=== PATIENT | female | born 1985 | race Caucasian/White ===

== ENCOUNTER 2022-10-15 05:37 | Emergency (ER) | payer MEDICAID, OTHER ==
[~2022-10-15] VITALS: Ht 154.9 cm; Wt 75.7 kg
[2022-10-15 05:40] VITALS: BP 130/83
--- NOTE | 2022-10-15 05:48 | NUR ---
PT TAKEN TO BED 11
--- NOTE | 2022-10-15 05:52 | NUR ---
Patient resting in bed, A/Ox4, chest rise and fall symmetrical, no s/s of distress.
[2022-10-15] MEDS ORDERED: NACL 0.9% 1,000 ML IV ONE (06:45)
[2022-10-15] MEDS ORDERED: diphenhydrAMINE 50 MG/ML VIAL IVP ONE (06:45)
[2022-10-15] MEDS ORDERED: METOCLOPRAMIDE 10 MG/2 ML INJ VIAL IVP ONE (06:45)
[2022-10-15] MEDS ORDERED: KETOROLAC 15 MG/ML VIAL IVP ONE (06:45)
--- NOTE | 2022-10-15 07:00 | NUR ---
Patient resting in bed, A/Ox4, chest rise and fall symmetrical, no s/s of distress.
--- NOTE | 2022-10-15 07:19 | NUR ---
Change of shift report given to AM shift nurse Keerthi RN. AM shift nurse Keerthi RN verbalized understanding of report, no further questions.
[2022-10-15 07:46] LABS: ALBUMIN 4.3 g/dL (3.4-5.0); ANION GAP 11.9 (8-16); CARBON DIOXIDE 27.4 mmol/L (21-32); CREATININE 0.8 mg/dL (0.6-1.3); POTASSIUM 4.3 mmol/L (3.5-5.1)
[2022-10-15] MEDS ORDERED: SUMA25TA PO (07:50)
[2022-10-15] MEDS ORDERED: NAPR-54 PO (07:50)
[2022-10-15 08:09] LABS: BASOPHILS # (AUTO) 0.1 K/uL (0.00-0.22); BASOPHILS % (AUTO) 0.8 % (0.0-2.0); EOSINOPHILS # (AUTO) 0.1 K/uL (0-0.4); EOSINOPHILS % (AUTO) 1.3 % (0.0-4.0); HEMATOCRIT 36.9 % (36-48); HEMOGLOBIN 11.8 g/dL (12.0-16.0); LYMPHOCYTES # (AUTO) 2.3 K/uL (2.5-16.5); LYMPHOCYTES % (AUTO) 25.7 % (20.5-51.1); MEAN CORPUSCULAR HEMOGLOBIN 28 pg (27-31); MEAN CORPUSCULAR HGB CONC 32 g/dL (33-37); MEAN CORPUSCULAR VOLUME 85.9 fL (80-94); MONOCYTES # (AUTO) 0.6 K/uL (0.8-1.0); MONOCYTES % (AUTO) 6.6 % (1.7-9.3); NEUTROPHILS # (AUTO) 5.8 K/uL (1.8-7.7); NEUTROPHILS % (AUTO) 65.6 % (42.2-75.2); PLATELET COUNT (AUTO) 279 K/uL (140-450); RED CELL DISTRIBUTION WIDTH 13.4 % (11.6-13.7); WHITE BLOOD COUNT (AUTO) 8.8 K/uL (4.8-10.8)
[2022-10-15 08:27] VITALS: BP 141/70
--- NOTE | 2022-10-18 08:15 | NUR ---
LATE ENTRY -- CONFIRMED WITH NURSE NS INFUSION COMPLETED AT 0800 10/15/22
== END 2022-10-15 08:28 | disposition home or self-care (01) ==
LOC: MED 05:37
DX: G43.909 Migraine, unspecified, not intractable, without status migrainosus (principal); Z88.2 Allergy status to sulfonamides
CPT/HCPCS: 36415; 80053; 85025; 96361; 96374; 96375; 99284; J1200; J1885; J2765; J7030

== ENCOUNTER 2022-11-19 10:21 | Emergency (ER) | payer OTHER ==
[~2022-11-19] VITALS: Ht 154.9 cm; Wt 80.7 kg
[~2022-11-19 10:21] MED LIST: NAPR-54 PO; SUMA25TA PO
[2022-11-19 10:43] VITALS: BP 115/61
[2022-11-19] MEDS ORDERED: KETOROLAC 30 MG/ML VIAL IM ONE (11:10)
--- NOTE | 2022-11-19 11:28 | NUR ---
HERE FOR LOWER BACK PAIN AND SOME ABD DISCOMFORT, FREQ URINATING SENSATION MEDICATED ORDERED
--- NOTE | 2022-11-19 12:02 | NUR ---
Female [employer] Operator accompanied female patient for Pelvic Exam.
[2022-11-19 13:27] LABS: APPEARANCE,URINE CLEAR (CLEAR); BILIRUBIN,URINE NEGATIVE (NEGATIVE); BLOOD, URINE NEGATIVE (NEGATIVE); COLOR,URINE YELLOW (YELLOW); LEUKOCYTE ESTERASE ,URINE 2+ (NEGATIVE); NITRITE, URINE NEGATIVE (NEGATIVE); PH,URINE 6.5 (5.0-9.0); UGLUCOSE NEGATIVE (NEGATIVE)
[2022-11-19 13:50] LABS: RBC,URINE 0-5 /HPF (0-5)
[2022-11-19] MEDS ORDERED: NITR100C7 PO (13:53)
[2022-11-19] MEDS ORDERED: IBUP-2213 PO (13:53)
[2022-11-19] MEDS ORDERED: PYR100 PO (13:53)
[2022-11-19] MEDS ORDERED: CLOT2CRE VG (13:53)
[2022-11-19 14:05] VITALS: BP 126/76
--- NOTE | 2022-11-19 14:06 | NUR ---
dc'd homePatient discharged with v/s stable. Written and verbal after care instructions given and explained. Patient verbalized understanding. Ambulatory with steady gait. All questions addressed prior to discharge. Advised to follow up with PMD.
[2022-11-22] MEDS ORDERED: AMOX1TAB8 PO (15:44)
== END 2022-11-19 14:05 | disposition home or self-care (01) ==
LOC: MED 10:21
DX: N39.0 Urinary tract infection, site not specified (principal); Z11.3 Encounter for screening for infections with a predominantly sexual mode of transmission; Z90.710 Acquired absence of both cervix and uterus; Z79.899 Other long term (current) drug therapy; Z79.1 Long term (current) use of non-steroidal anti-inflammatories (NSAID); Z79.2 Long term (current) use of antibiotics; Z88.2 Allergy status to sulfonamides
CPT/HCPCS: 81001; 87086; 87110; 87210; 87299; 87491; 96372; 99284; J1885

== ENCOUNTER 2023-01-23 17:19 | Emergency (ER) | payer OTHER ==
[~2023-01-23] VITALS: Ht 153.7 cm; Wt 82.1 kg
[~2023-01-23 17:19] MED LIST changes: +AMOX1TAB8 PO; +CLOT2CRE VG; +IBUP-2213 PO; +PYR100 PO
[2023-01-23 17:29] VITALS: BP 133/74
--- NOTE | 2023-01-23 17:51 | NUR ---
PT. NOT FOUND IN LOBBY. CALLED PT.S NAME OUTSIDE ER. CHECKED BATHROOMS. PT. NOT FOUND. PT. LEFT WITHOUT
[2023-01-23] MEDS ORDERED: diphenhydrAMINE 50 MG/ML VIAL IVP ONE (18:15)
[2023-01-23] MEDS ORDERED: PROCHLORPERAZINE 10 MG/2 ML VIAL IVP ONE (18:15)
[2023-01-23] MEDS ORDERED: NACL 0.9% 1,000 ML IV ONE (18:15)
--- NOTE | 2023-01-23 18:40 | NUR ---
PT. MOVED TO BED 3 FOR FURTHER CARE
--- NOTE | 2023-01-23 19:21 | NUR ---
HERE FOR EVALUATION OF KHAN, PT STS IT FEELS LIKE MY MIGRAINE, MEDS GIVEN ORDERED
[2023-01-23] MEDS ORDERED: ONDA-188 PO (19:36)
[2023-01-23] MEDS ORDERED: NAPR-54 PO (19:36)
[2023-01-23 19:58] VITALS: BP 133/74
--- NOTE | 2023-01-23 19:58 | NUR ---
Patient discharged with v/s stable. Written and verbal after care instructions given and explained. Patient alert, oriented and verbalized understanding of instructions. Ambulatory with steady gait. All questions addressed prior to discharge. ID band removed. Patient advised to follow up with PMD. Rx of NAPROXEN, AND ONDANSETRON given. Patient educated on indication of medication including possible reaction and side effects. Opportunity to ask questions provided and answered. DX: GENERAL HEADACHE WITHOUT CAUSE, MIGRAINE HEADACHE
== END 2023-01-23 19:58 | disposition home or self-care (01) ==
LOC: MED 17:19
DX: R51.9 Headache, unspecified (principal); R03.0 Elevated blood-pressure reading, without diagnosis of hypertension; R11.0 Nausea; H53.149 Visual discomfort, unspecified; J45.909 Unspecified asthma, uncomplicated; Z88.2 Allergy status to sulfonamides; Z79.899 Other long term (current) drug therapy
CPT/HCPCS: 96361; 96374; 96375; 99284; J0780; J1200; J7030

== ENCOUNTER 2023-04-27 10:07 | Emergency (ER) | payer OTHER ==
[~2023-04-27] VITALS: Ht 137.2 cm; Wt 79.4 kg
[~2023-04-27 10:07] MED LIST changes: +ONDA-188 PO
[2023-04-27 10:25] VITALS: BP 131/71; PULSE 72; RESP 20; TEMP 98.3; O2SAT 96
[2023-04-27] MEDS ORDERED: NACL 0.9% 1,000 ML IV SCH (11:25)
[2023-04-27 11:45] LABS: BASOPHILS % (AUTO) 0.5 % (0.0-2.0); EOSINOPHILS # (AUTO) 0.1 K/uL (0-0.4); EOSINOPHILS % (AUTO) 1.6 % (0.0-4.0); HEMATOCRIT 39.9 % (36-48); HEMOGLOBIN 12.9 g/dL (12.0-16.0); LYMPHOCYTES # (AUTO) 2.2 K/uL (2.5-16.5); LYMPHOCYTES % (AUTO) 24.3 % (20.5-51.1); MEAN CORPUSCULAR HEMOGLOBIN 27 pg (27-31); MEAN CORPUSCULAR HGB CONC 32 g/dL (33-37); MEAN CORPUSCULAR VOLUME 83.9 fL (80-94); MONOCYTES # (AUTO) 0.7 K/uL (0.8-1.0); MONOCYTES % (AUTO) 7.7 % (1.7-9.3); NEUTROPHILS % (AUTO) 65.9 % (42.2-75.2); PLATELET COUNT (AUTO) 292 K/uL (140-450); RED BLOOD CELL COUNT(AUTO) 4.76 MIL/uL (4.20-5.40); RED CELL DISTRIBUTION WIDTH 13.8 % (11.6-13.7); WHITE BLOOD COUNT (AUTO) 9.1 K/uL (4.8-10.8)
[2023-04-27 12:08] LABS: ALBUMIN 3.6 g/dL (3.4-5.0); CALCIUM 8.6 mg/dL (8.5-10.1); CARBON DIOXIDE 28.2 mmol/L (21-32); CREATININE 0.8 mg/dL (0.6-1.3); POTASSIUM 4.2 mmol/L (3.5-5.1); TOTAL BILIRUBIN 0.3 mg/dL (0.0-1.0); TOTAL PROTEIN, SERUM 7.6 g/dL (6.4-8.2)
[2023-04-27 12:39] LABS: APPEARANCE,URINE CLEAR (CLEAR); BILIRUBIN,URINE NEGATIVE (NEGATIVE); BLOOD, URINE NEGATIVE (NEGATIVE); COLOR,URINE YELLOW (YELLOW); LEUKOCYTE ESTERASE ,URINE NEGATIVE (NEGATIVE); NITRITE, URINE NEGATIVE (NEGATIVE); PROTEIN,URINE NEGATIVE (NEGATIVE); UGLUCOSE NEGATIVE (NEGATIVE); UROBILINOGEN,URINE 0.2 EU/dL (0.2 - 1)
[2023-04-27] MEDS ORDERED: METR-435 PO (13:39)
[2023-04-27] MEDS ORDERED: CIPR500T4 PO (13:39)
[2023-04-27] MEDS ORDERED: BEN10 PO (13:39)
[2023-04-27 13:50] VITALS: BP 131/71; PULSE 76; RESP 22; TEMP 98.3; O2SAT 96
== END 2023-04-27 13:50 | disposition home or self-care (01) ==
LOC: MED 10:07
DX: K52.9 Noninfective gastroenteritis and colitis, unspecified (principal); R91.1 Solitary pulmonary nodule; R19.7 Diarrhea, unspecified; R11.2 Nausea with vomiting, unspecified; J45.909 Unspecified asthma, uncomplicated; Z88.2 Allergy status to sulfonamides; Z79.899 Other long term (current) drug therapy; Z90.710 Acquired absence of both cervix and uterus
CPT/HCPCS: 36415; 74177; 80053; 81003; 83690; 85025; 96360; 99285; J7030; Q9967

== ENCOUNTER 2023-09-27 19:06 | Emergency (ER) | payer OTHER ==
[~2023-09-27] VITALS: Ht 160 cm; Wt 81.6 kg
[~2023-09-27 19:06] MED LIST changes: +BEN10 PO; +CIPR500T4 PO; +METR-435 PO
[2023-09-27 19:35] VITALS: BP 109/77; PULSE 78; RESP 16; TEMP 98.4; O2SAT 99
[2023-09-27 22:23] LABS: FLU A ANTIGEN negative (NEGATIVE); FLU B ANTIGEN NEGATIVE (NEGATIVE)
[2023-09-27] MEDS ORDERED: ALBUTEROL 0.083% 2.5 MG/3 ML NEBU INH ONE (22:45)
[2023-09-27] MEDS ORDERED: NACL 0.9% 1,000 ML IV ONE (22:45)
[2023-09-27] MEDS ORDERED: KETOROLAC 30 MG/ML VIAL IVP ONE (22:45)
[2023-09-27 23:06] LABS: BASOPHILS % (AUTO) 0.4 % (0.0-2.0); EOSINOPHILS # (AUTO) 0.2 K/uL (0-0.4); EOSINOPHILS % (AUTO) 1.9 % (0.0-4.0); HEMATOCRIT 39.9 % (36-48); HEMOGLOBIN 13.2 g/dL (12.0-16.0); LYMPHOCYTES # (AUTO) 3.1 K/uL (2.5-16.5); LYMPHOCYTES % (AUTO) 32.3 % (20.5-51.1); MEAN CORPUSCULAR HEMOGLOBIN 28 pg (27-31); MEAN CORPUSCULAR HGB CONC 33 g/dL (33-37); MONOCYTES # (AUTO) 0.7 K/uL (0.8-1.0); MONOCYTES % (AUTO) 7.7 % (1.7-9.3); NEUTROPHILS # (AUTO) 5.5 K/uL (1.8-7.7); NEUTROPHILS % (AUTO) 57.7 % (42.2-75.2); PLATELET COUNT (AUTO) 350 K/uL (140-450); RED CELL DISTRIBUTION WIDTH 14.2 % (11.6-13.7); WHITE BLOOD COUNT (AUTO) 9.6 K/uL (4.8-10.8)
[2023-09-27 23:17] VITALS: PULSE 66; RESP 18; O2SAT 98
[2023-09-27 23:20] LABS: ANION GAP 12.5 (8-16); CALCIUM 9.3 mg/dL (8.5-10.1); CREATININE 0.8 mg/dL (0.6-1.3); POTASSIUM 4.5 mmol/L (3.5-5.1)
[2023-09-27 23:30] LABS: APPEARANCE,URINE CLEAR (CLEAR); BILIRUBIN,URINE NEGATIVE (NEGATIVE); BLOOD, URINE NEGATIVE (NEGATIVE); COLOR,URINE YELLOW (YELLOW); LEUKOCYTE ESTERASE ,URINE NEGATIVE (NEGATIVE); NITRITE, URINE NEGATIVE (NEGATIVE); PROTEIN,URINE NEGATIVE (NEGATIVE); UGLUCOSE NEGATIVE (NEGATIVE); UROBILINOGEN,URINE 0.2 EU/dL (0.2 - 1)
[2023-09-27] MEDS ORDERED: ROB PO (23:42)
[2023-09-27] MEDS ORDERED: IBUP-1842 PO (23:43)
[2023-09-28] MEDS ORDERED: KETOROLAC 30 MG/ML VIAL ONE (00:02)
== END 2023-09-28 00:06 | disposition home or self-care (01) ==
LOC: MED 19:06
DX: J20.9 Acute bronchitis, unspecified (principal); Z20.822 Contact with and (suspected) exposure to COVID-19; J45.909 Unspecified asthma, uncomplicated; Z88.2 Allergy status to sulfonamides; Z79.899 Other long term (current) drug therapy
CPT/HCPCS: 36415; 71045; 80048; 81003; 81025; 85025; 87426; 87804; 94640; 96361; 96374; 99284; J1885; J7030; J7613

== ENCOUNTER 2023-10-07 20:37 | Emergency (ER) | payer OTHER ==
[~2023-10-07] VITALS: Ht 154.9 cm; Wt 84.4 kg
[~2023-10-07 20:37] MED LIST changes: +IBUP-1842 PO; +ROB PO
[2023-10-07 20:49] VITALS: BP 127/77; PULSE 123; RESP 19; TEMP 98; O2SAT 97
[2023-10-07] MEDS ORDERED: ACETAMINOPHEN EXTRA STRENGTH 500 MG TAB PO ONE (20:55)
[2023-10-07 21:22] LABS: APPEARANCE,URINE CLEAR (CLEAR); BILIRUBIN,URINE NEGATIVE (NEGATIVE); BLOOD, URINE TRACE-I (NEGATIVE); COLOR,URINE YELLOW (YELLOW); LEUKOCYTE ESTERASE ,URINE NEGATIVE (NEGATIVE); NITRITE, URINE NEGATIVE (NEGATIVE); PROTEIN,URINE NEGATIVE (NEGATIVE); UGLUCOSE NEGATIVE (NEGATIVE); UROBILINOGEN,URINE 0.2 EU/dL (0.2 - 1)
[2023-10-07 21:34] LABS: BACTERIA,URINE None Seen /HPF (None Seen); MUCUS,URINE 1+ /LPF (None Seen); RBC,URINE 0-5 /HPF (0-5); SQUAMOUS EPITHELIAL CELL,UR 80-100 /LPF (0-3 (FEW)); TRICHOMONAS,URINE None Seen /HPF (None Seen); WBC,URINE 0 /HPF (0-5); YEAST,URINE None Seen /HPF (None Seen)
[2023-10-07] MEDS ORDERED: methocarbamoL 500 MG TAB PO ONE (22:55)
[2023-10-07] MEDS ORDERED: LIDOCAINE 5% 1 EA PATCH TP ONE (22:55)
[2023-10-07] MEDS ORDERED: KETOROLAC 30 MG/ML VIAL IM ONE (22:55)
[2023-10-08] MEDS ORDERED: CYCL-711 PO (00:49)
[2023-10-08] MEDS ORDERED: IBUP-2213 PO (00:49)
[2023-10-08] MEDS ORDERED: LID5T TP (00:49)
[2023-10-08 01:12] VITALS: BP 93/52; PULSE 70; RESP 11; O2SAT 98
[2023-10-11] MEDS ORDERED: TAM75 PO (12:10)
== END 2023-10-08 01:12 | disposition home or self-care (01) ==
LOC: MED 20:37
DX: S39.012A Strain of muscle, fascia and tendon of lower back, initial encounter (principal); J45.909 Unspecified asthma, uncomplicated; Z98.890 Other specified postprocedural states; Z79.899 Other long term (current) drug therapy; Z79.1 Long term (current) use of non-steroidal anti-inflammatories (NSAID); Z79.2 Long term (current) use of antibiotics; Z88.2 Allergy status to sulfonamides; X58.XXXA Exposure to other specified factors, initial encounter; Y92.89 Other specified places as the place of occurrence of the external cause; Y93.89 Activity, other specified; Y99.8 Other external cause status
CPT/HCPCS: 81001; 81025; 96372; 99284; J1885

== ENCOUNTER 2023-10-10 20:40 | Emergency (ER) | payer OTHER ==
[~2023-10-10] VITALS: Ht 154.9 cm; Wt 81.6 kg
[2023-10-10 20:40] VITALS: BP 115/75; PULSE 103; RESP 18; TEMP 98.5; O2SAT 100
[~2023-10-10 20:40] MED LIST changes: +CYCL-711 PO; +LID5T TP
[2023-10-10] MEDS ORDERED: KETOROLAC 30 MG/ML VIAL IM ONE (21:05)
[2023-10-10] MEDS ORDERED: IBUP-2213 PO (21:36)
[2023-10-10] MEDS ORDERED: ALBU0.0912 INH (21:36)
[2023-10-10] MEDS ORDERED: BENZ100C6 PO (21:36)
[2023-10-10 22:02] LABS: FLU A ANTIGEN negative (NEGATIVE)
[2023-10-10 22:20] LABS: FLU B ANTIGEN POSITIVE (NEGATIVE)
[2023-10-11] MEDS ORDERED: TAM75 PO (12:10)
== END 2023-10-10 22:01 | disposition home or self-care (01) ==
LOC: MED 20:40
DX: J10.1 Influenza due to other identified influenza virus with other respiratory manifestations (principal); Z20.822 Contact with and (suspected) exposure to COVID-19; J45.909 Unspecified asthma, uncomplicated; G43.909 Migraine, unspecified, not intractable, without status migrainosus; Z79.899 Other long term (current) drug therapy; Z90.710 Acquired absence of both cervix and uterus
CPT/HCPCS: 87426; 87804; 96372; 99283; J1885